=== PATIENT | female | born 1970 | race Caucasian/White ===

== ENCOUNTER → 2018-08-14 11:34 | Outpatient (CLI) | payer OTHER, SELFPAY ==
[2018-08-14 12:40] LABS: Alanine Aminotransferase 15 IU/L (9-52); Albumin 4.5 g/dL (3.5-5.0); Albumin Globulin Ratio 1.3 (1.0-2.8); Alkaline Phosphatase 57 U/L (38-126); Amylase 71 U/L (30-110); Aspartate Aminotransferase 23 IU/L (14-36); BUN Creatinine Ratio 24.3 (6-22); Bilirubin Total 0.5 mg/dL (0.2-1.3); Blood Urea Nitrogen 17 mg/dL (7-17); Calcium 9.7 mg/dL (8.4-10.2); Carbon Dioxide 30 mmol/L (22-32); Chloride 104 mmol/L (98-107); Cholesterol 251 mg/dL (140-199); Estimated Glomerular Filt Rate > 60.0 mL/min (>60); Globulin 3.4 g/dL (1.7-4.1); Glucose 84 mg/dL (70-100); HDL Cholesterol 90 mg/dL (40-60); HEMOLYSIS 18 (0-50); LDL Cholesterol Calculated 147 mg/dL (<100); Lipase 51 U/L (23-300); Potassium 4.3 mmol/L (3.4-5.1); Sodium 140 mmol/L (137-145); Total Protein 7.9 g/dL (6.3-8.2); Triglycerides 68 mg/dL (35-150)
[2018-08-14 13:41] LABS: TSH w/ Reflex to FT4 0.79 uIU/mL (0.47-4.68)
== END ==
PROVIDERS: PCP Internal Medicine; Visit Provider Internal Medicine
DX: E78.5 Hyperlipidemia, unspecified (principal); F32.9 Major depressive disorder, single episode, unspecified; G43.909 Migraine, unspecified, not intractable, without status migrainosus; R10.9 Unspecified abdominal pain
CPT/HCPCS: 36415; 80053; 80061; 82150; 83690; 84443

== ENCOUNTER → 2019-05-13 07:49 | Outpatient (CLI) | payer OTHER, SELFPAY ==
--- NOTE | 2019-05-13 | DI.MG.S_ITS ---
BILATERAL DIGITAL SCREENING MAMMOGRAM 3D/2D WITH CAD: 05/13/2019 CLINICAL: Routine screening. Comparison is made to exams dated: 05/19/2017 mammogram, 09/29/2015 mammogram - [facility], and 05/03/2014 mammogram - [facility]. The tissue of both breasts is heterogeneously dense. This may lower the sensitivity of mammography. Current study was also evaluated with a Computer Aided Detection (CAD) system. No significant masses, calcifications, or other findings are seen in either breast. There has been no significant interval change. IMPRESSION: NEGATIVE There is no mammographic evidence of malignancy. A 1 year screening mammogram is recommended. This exam was interpreted at Station ID: [id number]. NOTE: For mammograms, a report in lay terms will be sent to the patient. Approximately 15% of breast malignancies will not be visualized mammographically. In the management of a palpable breast mass, a negative mammogram must not discourage biopsy of a clinically suspicious lesion. Electronically Signed By: Dav desai/teena:05/13/2019 08:35:13 letter sent: Normal Exam ACR BI-RADS Category 1: Negative [id number]
== END ==
PROVIDERS: PCP Internal Medicine; Referring Provider Internal Medicine; Visit Provider Internal Medicine
DX: Z12.31 Encounter for screening mammogram for malignant neoplasm of breast (principal)
CPT/HCPCS: 77063; 77067

== ENCOUNTER → 2020-06-16 11:57 | Outpatient (CLI) | payer OTHER, SELFPAY ==
--- NOTE | 2020-06-16 12:03 | DI.RAD.S_ITS ---
PROCEDURE: XR THORACIC SPINE 2V INDICATIONS: SPINE PAIN TECHNIQUE: 3 views of the thoracic spine were acquired. COMPARISON: None. FINDINGS: Bones: No fractures or dislocations. No suspicious bony lesions. 12 pairs of ribs are noted, and appear intact where visualized. Slight leftward curvature is probably due to positioning during the study. Soft tissues: No paravertebral stripe thickening. IMPRESSION: 1. No acute abnormality of the thoracic spine. 2. No significant degenerative changes. Dictated by: Tacos Anderson M.D. on 06/16/2020 at 12:56 Approved by: Tacos Anderson M.D. on 06/16/2020 at 12:57
--- NOTE | 2020-06-16 12:03 | DI.RAD.S_ITS ---
PROCEDURE: XR CERVICAL SPINE 4V OR 5V INDICATIONS: SPINE PAIN TECHNIQUE: 5 views of the cervical spine acquired. COMPARISON: None. FINDINGS: Bones: No fractures or dislocations to the T1 level. Oblique images demonstrate no bony foraminal stenoses. There is degenerative disc disease at C5-6 and C6-7. The foramina are narrowed on the oblique views at C5-6 and C6-7. Soft tissues: No prevertebral soft tissue swelling. IMPRESSION: Degenerative disc disease at C5-6 and C6-7 with bony narrowing of the neural foramina. Recommend MRI. Dictated by: Tacos Anderson M.D. on 06/16/2020 at 12:49 Approved by: Tacos Anderson M.D. on 06/16/2020 at 12:51
--- NOTE | 2020-06-16 12:03 | DI.RAD.S_ITS ---
PROCEDURE: XR LUMBAR SPINE MIN 4V INDICATIONS: SPINE PAIN TECHNIQUE: 5 views of the lumbar spine acquired, including flexion and extension views. COMPARISON: None. FINDINGS: Bones: 5 nonrib-bearing vertebrae are present. Minimal degenerative changes are noted. There is facet arthrosis in the lower lumbar spine. There is normal bony alignment. No vertebral body compression fractures. No suspicious bony lesions. No significant disc space narrowing. Soft tissues: Overlying bowel gas pattern is normal. No suspicious soft tissue calcifications. Flexion/extension: There is normal range of motion, with preserved normal alignment. IMPRESSION: 1. No acute abnormality of the lumbar spine. 2. Minimal facet arthrosis and degenerative changes of the lumbar spine. 3. No significant disc space narrowing is identified. Dictated by: Tacos Anderson M.D. on 06/16/2020 at 12:52 Approved by: Tacos Anderson M.D. on 06/16/2020 at 12:56
== END ==
PROVIDERS: PCP Internal Medicine; Referring Provider Chiropractor; Visit Provider Chiropractor
DX: M54.5 Low back pain (principal); M54.6 Pain in thoracic spine; M54.2 Cervicalgia; M99.05 Segmental and somatic dysfunction of pelvic region; M99.04 Segmental and somatic dysfunction of sacral region; M99.03 Segmental and somatic dysfunction of lumbar region; M99.02 Segmental and somatic dysfunction of thoracic region; M99.01 Segmental and somatic dysfunction of cervical region
CPT/HCPCS: 72050; 72070; 72110